=== PATIENT | male | born 1955 | race African-American/Black ===

== ENCOUNTER 2018-07-17 08:10 | Emergency (ER) | payer MEDICAID ==
[~2018-07-17] VITALS: Ht 177.8 cm; Wt 67.0 kg
[~2018-07-17 08:10] MED LIST: ALBU6.7H3 IH; CEPH-571 PO; IPRA12.94 IH
[2018-07-17 08:29] VITALS: BP 121/97
--- NOTE | 2018-07-17 09:00 | NUR ---
PATIENT WANTE TO LEAVE JEANE JEAN MADE AWARE.
[2018-07-17] MEDS ORDERED: amox tr/potassium clavulanate 875/125mg TAB PO ONE (09:10)
[2018-07-17] MEDS ORDERED: AMOX-422 PO (09:10)
== END 2018-07-17 09:24 | disposition left against medical advice (07) ==
LOC: ER 08:10
DX: S61.212A Laceration without foreign body of right middle finger without damage to nail, initial encounter (principal); S61.214A Laceration without foreign body of right ring finger without damage to nail, initial encounter; L08.9 Local infection of the skin and subcutaneous tissue, unspecified; M79.641 Pain in right hand; M19.90 Unspecified osteoarthritis, unspecified site; G89.29 Other chronic pain; F12.90 Cannabis use, unspecified, uncomplicated; F15.90 Other stimulant use, unspecified, uncomplicated; Z98.890 Other specified postprocedural states; Z60.2 Problems related to living alone; Z59.0 Homelessness; Z56.0 Unemployment, unspecified; Z79.2 Long term (current) use of antibiotics; W51.XXXA Accidental striking against or bumped into by another person, initial encounter; Y93.89 Activity, other specified; Y92.89 Other specified places as the place of occurrence of the external cause; Y99.8 Other external cause status
CPT/HCPCS: 73130; 99283

== ENCOUNTER 2018-07-23 16:46 | Emergency (ER) | payer MEDICAID ==
[~2018-07-23] VITALS: Ht 177.8 cm; Wt 69.7 kg
[~2018-07-23 16:46] MED LIST changes: +AMOX-422 PO
[2018-07-23 17:04] VITALS: BP 133/87
[2018-07-23] MEDS ORDERED: LIDOcaine 1.5% w/epinephrine 1:200,000 5ml ampul IJ ONE (19:05)
[2018-07-23] MEDS ORDERED: LIDOcaine 1% w/epiNEPHrine 1:200,000 30ml vial IJ ONE (19:10)
--- NOTE | 2018-07-23 19:30 | NUR ---
Rebecca SHERMAN AT BEDSIDE TO I&D ABSCESS TO RT HAND
[2018-07-23] MEDS ORDERED: DOXY100C2 PO (20:05)
[2018-07-23] MEDS ORDERED: ROBCFL PO (20:17)
== END 2018-07-23 20:19 | disposition home or self-care (01) ==
LOC: ER 16:46
DX: L02.511 Cutaneous abscess of right hand (principal); G89.29 Other chronic pain; M19.90 Unspecified osteoarthritis, unspecified site; F12.90 Cannabis use, unspecified, uncomplicated; F15.90 Other stimulant use, unspecified, uncomplicated; Z98.890 Other specified postprocedural states; Z79.899 Other long term (current) drug therapy; Z60.2 Problems related to living alone; Z59.0 Homelessness; Z56.0 Unemployment, unspecified
CPT/HCPCS: 10060; 99283; J3490

== ENCOUNTER 2019-03-21 09:23 | Emergency (ER) | payer OTHER, MEDICAID ==
[~2019-03-21] VITALS: Ht 177.8 cm; Wt 70.5 kg
[~2019-03-21 09:23] MED LIST changes: -AMOX-422 PO
[2019-03-21] MEDS ORDERED: LIDOcaine 4% LTA kit 4ml solution TP ONE (11:15)
[2019-03-21] MEDS ORDERED: iohexol 300mg/ml 100ml inj. ONE (11:21)
[2019-03-21 11:55] LABS: BASOPHILS % (AUTO) 0.5 % (0-1); EOSINOPHILS # (AUTO) 0.1 X10'3 (0-0.9); EOSINOPHILS % (AUTO) 2.7 % (0-6); HEMATOCRIT 42.4 % (42.0-52.0); LYMPHOCYTES # (AUTO) 1.5 X10'3 (1.1-4.8); LYMPHOCYTES % (AUTO) 29.4 % (21-51); MEAN CORPUSCULAR HEMOGLOBIN 30.4 PG (27.0-31.0); MEAN CORPUSCULAR VOLUME 92.3 FL (78-98); MEAN PLATELET VOLUME 7.8 FL (7.4-10.4); MONOCYTES # (AUTO) 0.7 X10'3 (0-0.9); MONOCYTES % (AUTO) 13.4 % (2-12); NEUTROPHILS # (AUTO) 2.8 X10'3 (1.8-7.7); PLATELET COUNT 216 X10'3 (140-440); RED CELL DISTRIBUTION WIDTH 14.4 % (11.5-14.5); WHITE BLOOD COUNT 5.2 X10'3 (4.5-11.0)
[2019-03-21 12:14] LABS: ALANINE AMINOTRANSFERASE 51 U/L (12-78); ALBUMIN/GLOBULIN RATIO 0.7 (1.1-1.5); ALKALINE PHOSPHATASE 73 IU/L (46-116); ANION GAP 4 (8-16); ASPARTATE AMINO TRANSFERASE 24 U/L (10-37); BILIRUBIN,TOTAL 0.4 MG/DL (0.1-1.0); BLOOD UREA NITROGEN 16 MG/DL (7-18); BUN/CREATININE RATIO 15.7 (5.4-32.0); CHLORIDE 104 MMOL/L (99-107); CREATININE 1.02 MG/DL (0.60-1.10); GLUCOSE 94 MG/DL (70-104); SODIUM 139 MMOL/L (135-145); TOTAL CARBON DIOXIDE 31.2 MMOL/L (24-32); TOTAL PROTEIN 7.5 G/DL (6.4-8.2); eGFR 90 ML/MIN
[2019-03-21] MEDS ORDERED: clindamycin 600mg/D5W 50ml 50 ML IV ONE (14:25)
[2019-03-21 18:07] VITALS: BP 118/57
== END 2019-03-21 18:10 | disposition short-term general hospital (02) ==
LOC: ER 09:23 → EEVIPCON 09:23 → ER 18:10
DX: J36 Peritonsillar abscess (principal); H61.23 Impacted cerumen, bilateral; J45.909 Unspecified asthma, uncomplicated; E11.9 Type 2 diabetes mellitus without complications; M19.90 Unspecified osteoarthritis, unspecified site; G89.29 Other chronic pain; F17.200 Nicotine dependence, unspecified, uncomplicated; F12.90 Cannabis use, unspecified, uncomplicated; F15.90 Other stimulant use, unspecified, uncomplicated; F10.10 Alcohol abuse, uncomplicated; Z60.2 Problems related to living alone; Z59.0 Homelessness; Z56.0 Unemployment, unspecified; Z98.890 Other specified postprocedural states; Z79.899 Other long term (current) drug therapy; Y90.9 Presence of alcohol in blood, level not specified
CPT/HCPCS: 36415; 70491; 80053; 85025; 96365; 99285; Q9967; J2001; J3490

== ENCOUNTER 2019-07-19 04:23 | Emergency (ER) | payer MEDICAID, OTHER ==
--- NOTE | 2019-07-19 04:32 | NUR ---
PT CALLED INTO TRIAGE, PT STATED HE NEEDED TO GO TO BATHROOM TO CLEAN UP HIS BOWEL MOVEMENT IN CLOTHES. PT APPEARED TO BE IN NO APPARENT DISTRESS. PT BELONGINGS ALL OVER LOBBY
--- NOTE | 2019-07-19 04:40 | NUR ---
SECURITY CALLED TO TANYA PT STILL IN BATHROOM
--- NOTE | 2019-07-19 04:58 | NUR ---
PT DEFIANT AND BELINGERANT AND THREATENING TOWARDS SECURITY. CLAIM BENEFIT SPECIALIST ALERTED. ESCORTED OUT OF ED LOBBY BY SECURITY.
== END 2019-07-19 04:59 | disposition left against medical advice (07) ==
LOC: ER 04:24
DX: J18.9 Pneumonia, unspecified organism (principal); Z53.21 Procedure and treatment not carried out due to patient leaving prior to being seen by health care provider

== ENCOUNTER 2024-06-17 22:35 | Emergency (ER) | payer MEDICARE, MEDICAID ==
[~2024-06-17] VITALS: Ht 175.3 cm; Wt 70.0 kg
[2024-06-17 22:40] VITALS: BP 166/89; PULSE 105; RESP 16; TEMP 98; O2SAT 95
== END 2024-06-18 03:11 | disposition home or self-care (01) ==
LOC: ER 22:36
DX: M17.11 Unilateral primary osteoarthritis, right knee (principal); J45.909 Unspecified asthma, uncomplicated; E11.9 Type 2 diabetes mellitus without complications; M19.90 Unspecified osteoarthritis, unspecified site; G89.29 Other chronic pain; M54.9 Dorsalgia, unspecified; F12.90 Cannabis use, unspecified, uncomplicated; F15.90 Other stimulant use, unspecified, uncomplicated; F10.10 Alcohol abuse, uncomplicated; Z59.00 Homelessness unspecified; Z56.0 Unemployment, unspecified; Z72.89 Other problems related to lifestyle
CPT/HCPCS: 73560; 99283

== ENCOUNTER 2024-12-06 19:23 | Emergency (ER) | payer MEDICARE, MEDICAID ==
[~2024-12-06] VITALS: Ht 177.8 cm; Wt 78.0 kg
--- NOTE | 2024-12-06 19:31 | Physician Documentation ---
History of Present Illness ~ Stated Complaint: SOB Time Seen by MD: 19:31 Primary Medical Doctor: Lauren Gomez 69-year-old male, history of COPD, who presents with shortness of breath Per EMS, the patient arrives with sudden onset of shortness of breath. On arrival he was very wheezy and had increased work of breathing. He was given a DuoNeb during transport with good improvement. He reportedly has been out of his inhaler The patient confirms this to me. He tells me he was feeling okay until this afternoon, when he suddenly started to feel short of breath. He reports feeling very wheezy. He does not have an inhaler, has been out for at least 4 days. Denies any fevers or other infectious symptoms, no congestion, cough, vomiting. No chest pain. No leg swelling. He denies any smoking or inhalation of substances today. He did have a recent pneumonia and was on antibiotics and steroids. Medication Reconciliation Allergies: Coded Allergies: No Known Allergies (Unverified , 11/14/16) Scheduled Cephalexin (Keflex), 1 CAP PO Q6H Prednisone* (Prednisone*), 2 TAB PO DAILY Scheduled PRN albuterol inhaler (Pro-Air Inhaler), 2 PUFFS INH Q4HPRN PRN for wheezing Miscellaneous Medications Albuterol Sulfate (Proventil Hfa), 6.7 GM IH, (Reported) Ipratropium [place] (Atrovent Hfa), 12.9 GM IH, (Reported) Past Medical History Past Medical History: Asthma, Diabetes, Arthritis, Chronic Back Pain Past Surgical History: orthopedic surgeries Alcohol Use: Abuse Drug Use: marijuana, methamphetamine Lives with: Alone Lives In: Homeless Occupation: unemployed Review of Systems Constitutional: Denies: fever Respiratory: Reports: shortness of breath Cardiovascular: Denies: chest pain Physical Exam Physical Exam General: This is a thin middle-aged man, with slightly increased work of breathing, currently doing a breathing treatment Heart: Mild tachycardic, appears regular Lungs: Diminished air movement bilateral with expiratory wheezes, no crackles Abdomen: Soft, nondistended Extremities: Warm and well-perfused, no significant edema Neuro: Alert and oriented Psychiatric: Calm and cooperative with exam Progress Results/Orders Results/Orders Orders - BELINDA PRATT MD Chest,Single View (12/06/24 19:26) Monitor (12/06/24 19:26) Saline Lock (12/06/24 19:26) Oxygen (12/06/24 19:26) Electrocardiogram (12/06/24 19:26) Completed Orders - BELINDA PRATT MD Chest,Single View (12/06/24 19:26) Prednisone Tablet (Prednisone Tablet) (12/06/24 19:50) Ipratropium/Albuterol Nebule (Ipratrop/A (12/06/24 21:35) Medications Received in ER Medications (Trade) Dose Ordered Sig/Markie Route PRN Reason Start Time Stop Time Status Last Admin Dose Admin (predniSONE tablet) 40 mg ONCE ONCE PO 12/06/24 19:50 12/06/24 19:51 DC 12/06/24 20:01 40 MG (ipratrop/ albuterol 0.5-3(2.5) MG/3ml nebule) 3 ml ONCE ONCE NEB 12/06/24 21:35 12/06/24 21:36 DC 12/06/24 21:43 3 ML Vital Signs 12/06/24 12/06/24 12/06/24 12/06/24 19:25 20:56 20:57 21:43 Temp 97.6 Pulse 93 93 100 Resp 16 14 22 16 B/P (MAP) 139/90 121/91 (101) Pulse Ox 100 98 95 O2 Delivery Room Air* O2 Flow Rate 2.0 0 0 FiO2 21 12/06/24 21:47 Pulse 101 Resp 16 O2 Delivery Room Air* O2 Flow Rate 0 FiO2 21 Re-Evaluation Re-evaluation : Re-Evaluation Time: 21:52 Re-Evaluation: Improved Progress The patient is feeling much better and breathing easily after treatments. Ready for discharge home. EKG/XRAY/CT/US/VASC/MRI EKG : Additional Comment I personally interpreted the EKG and this shows: No acute ischemic changes, no STEMI, sinus rhythm Chest X-Ray : Additional Comments I personally reviewed the x-ray, and it shows: No focal consolidation, pulmona ry edema, or pneumothorax Medical Decision Making Differential Dx:Considerations: Include: anxiety, bronchitis, COPD, dysrhythmia, myocardial infarction Additional Infomation The patient presents with shortness of breath and wheezing. Per his history and exam this all appears consistent with a COPD flare. He has no fevers or other infectious symptoms. Chest x-ray without pneumonia. He was given a DuoNeb and prednisone. Following treatments, he significantly improved. At this time he is not appear to require admission for further treatment. Unfortunately we do not have an inhaler to send him home with. He will be discharged with a prescription for albuterol and prednisone. Return precautions given. Departure Time of Disposition: 21:53 Disposition: 01 HOME / SELF CARE / HOMELESS Impression: Primary Impression: COPD exacerbation Condition: Improved Discharge Instructions: Chronic Obstructive Pulmonary Disease Exacerbation Referrals: NO PRIMARY CARE PROVIDER (PCP) Prescriptions Prednisone* (Prednisone*) 20 Mg Tablet 2 TAB PO DAILY for 4 Days, #8 TAB Prov: BELINDA PRATT MD 12/06/24 albuterol inhaler (Pro-Air Inhaler) 8.5 Gm Inhaler 2 PUFFS INH Q4HPRN PRN for wheezing for 30 Days, #18 GM 2 Refills Prov: BELINDA PRATT MD 12/06/24 Education Educated: Patient Educated regarding: diagnosis, treatment Signature Scribe Signature: [email or web address] Attestation: BELINDA White MD December 06, 2024 19:31
--- NOTE | 2024-12-06 19:57 | RADIOLOGY REPORT ---
EXAM: XR Chest, 1 View CLINICAL INDICATION: CP TECHNIQUE: Frontal view of the chest. COMPARISON: None FINDINGS: LUNGS AND PLEURAL SPACES: Unremarkable. No consolidation. No pneumothorax. HEART: Unremarkable. No cardiomegaly. MEDIASTINUM: Unremarkable. Normal mediastinal contour. BONES/JOINTS: Unremarkable. No acute fracture. OTHER FINDINGS: . IMPRESSION: No acute cardiopulmonary process.
[2024-12-06] MEDS: predniSONE 20 mg tablet PO ONE (20:01)
[2024-12-06 21:43] VITALS: PULSE 100; RESP 16; O2SAT 95
[2024-12-06] MEDS: ipratropium/albuterol 3ml nebule NEB ONE (21:43)
[2024-12-06 21:47] VITALS: PULSE 101; RESP 16
[2024-12-06] MEDS ORDERED: ALBU8HFA INH (21:54)
[2024-12-06] MEDS ORDERED: PRED20TA PO (21:55)
[2024-12-06 23:24] VITALS: BP 130/86; PULSE 93; RESP 16; TEMP 97.6; O2SAT 97
--- NOTE | 2024-12-07 07:50 | ELECTROCARDIOGRAPH REPORT ---
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
== END 2024-12-06 23:40 | disposition home or self-care (01) ==
LOC: ER 19:23
DX: J44.1 Chronic obstructive pulmonary disease with (acute) exacerbation (principal); E11.9 Type 2 diabetes mellitus without complications; M19.90 Unspecified osteoarthritis, unspecified site
CPT/HCPCS: 71045; 93005; 94640; 99283; J7512; 94760

== ENCOUNTER 2024-12-09 00:33 | Emergency (ER) | payer MEDICARE, MEDICAID ==
[~2024-12-09] VITALS: Ht 177.8 cm; Wt 78.0 kg
[~2024-12-09 00:33] MED LIST changes: +ALBU8HFA INH; +PRED20TA PO
--- NOTE | 2024-12-09 01:28 | Physician Documentation ---
History of Present Illness ~ Chief Complaint: Abdominal Pain Stated Complaint: HERNIA PAIN Time Seen by MD: :25 Primary Medical Doctor: Lauren Gomez Patient presented to the emergency room with chief complaint of right hernia pain. He has been seen here previously a proximally 1.5 years ago with similar complaints with negative workup at that time. He states it has been hurting more over the past month this and his reported sciatic pain. He was taken some ibuprofen for his pain. Patient noted to be in lobby comfortably laughing however upon being put in his room writhing in agony. Upon my evaluation he was sleeping heavily in the room and easily arousable. Patient continues to pass gas Medication Reconciliation Allergies: Coded Allergies: No Known Allergies (Unverified , 12/09/24) Scheduled Cephalexin (Keflex), 1 CAP PO Q6H Prednisone* (Prednisone*), 2 TAB PO DAILY Scheduled PRN albuterol inhaler (Pro-Air Inhaler), 2 PUFFS INH Q4HPRN PRN for wheezing Miscellaneous Medications Albuterol Sulfate (Proventil Hfa), 6.7 GM IH, (Reported) Ipratropium [place] (Atrovent Hfa), 12.9 GM IH, (Reported) Past Medical History Past Medical History: Asthma, Diabetes, Arthritis, Chronic Back Pain Past Surgical History: orthopedic surgeries Alcohol Use: Abuse Drug Use: marijuana, methamphetamine Lives with: Alone Lives In: Homeless Occupation: unemployed Review of Systems ROS All review of systems negative except as per HPI Physical Exam Vital Signs: Temperature: 96.6, Source: Temporal, Heart Rate: 103, Respiratory Rate: 18, Pulse Oximetry: 96, Weight: 78.000 Physical Exam General: Patient is sleeping comfortably and easily arousable. Problems even turning over once awakened secondary to reported pain of his scrotum and sciatica Head: Normocephalic and atraumatic. Eyes: Conjunctival normal. EOMI. PERRL. ENT: Mucous membranes moist. Neck: Supple, trachea is midline. Chest: Clear to auscultation bilaterally without rales, rhonchi, or wheezes. There is no accessory muscle use or retractions. Cardiac: RRR without murmurs, gallops, or rubs. Abd: Soft, nondistended, nontender, with normoactive bowel sounds. No guarding, rebound, or rigidity. : Normal male external genitalia, uncircumcised. Tenderness to scrotum. No appreciable hernia. Cremasteric reflex intact bilaterally Progress Results/Orders Results/Orders Orders - TONYA MCKEON MD Ct Abdomen Pelvis (12/09/24 04:00) LA (12/09/24 04:25) Completed Orders - TONYA MCKEON MD Cbc/Diff (12/09/24 01:53) Urinalysis, Cult If Indicated (12/09/24 01:53) BMP (12/09/24 01:53) Drug Screen, Urine (12/09/24 01:53) Hydrocodone/Apap 5/325mg Tab ([place] 5/32 (12/09/24 01:55) Ct Abdomen Pelvis (12/09/24 04:00) Iohexol 300mg/Ml 100ml Inj. (Omnipaque-3 (12/09/24 03:27) Medications Received in ER Medications (Trade) Dose Ordered Sig/Markie Route PRN Reason Start Time Stop Time Status Last Admin Dose Admin ([place] 5/325mg tablet) 1 tab ONCE ONCE PO 12/09/24 01:55 12/09/24 01:56 DC 12/09/24 02:21 1 TAB Vital Signs 12/09/24 12/09/24 00:37 02:21 Temp 96.6 Pulse 103 Resp 18 12 Pulse Ox 96 Laboratory Tests Test 12/09/24 03:00 12/09/24 03:05 Urine Specimen Description Cln catch midstream Urine Color Yellow Urine Clarity Clear Urine pH 6.0 Urine Specific [place] 1.020 Urine Protein Negative Urine Glucose (UA) Negative Urine Ketones Negative Urine Occult Blood Negative Urine Nitrite Negative Urine Bilirubin Negative Urine Urobilinogen 0.2 Urine Leukocyte Esterase Negative Urine Culture Indicated Not ind Volume Urine Centrifuged 10 ml Urine Comment Urine Opiates Screen Negative Urine Methadone Screen Negative Urine Fentanyl Screen Negative Urine Barbiturates Screen Negative Urine Phencyclidine Screen Negative Urine Amphetamines Screen Negative Urine Benzodiazepines Screen Negative Urine Cocaine Screen Negative Urine Cannabinoids Screen Negative Drug Screen Comment White Blood Count 5.1 Red Blood Count 4.70 Hemoglobin 13.6 L Hematocrit 41.4 L Mean Corpuscular Volume 88.1 Mean Corpuscular Hemoglobin 29.0 Mean Corpuscular Hemoglobin Concent 33.0 Red Cell Distribution Width 15.2 H Platelet Count 226 Mean Platelet Volume 8.6 Neutrophils (%) (Auto) 43.8 Lymphocytes (%) (Auto) 40.4 Monocytes (%) (Auto) 11.6 Eosinophils (%) (Auto) 3.3 Basophils (%) (Auto) 0.9 Neutrophils # (Auto) 2.2 Lymphocytes # (Auto) 2.1 Monocytes # (Auto) 0.6 Eosinophils # (Auto) 0.2 Basophils # (Auto) 0.0 CBC Comment Sodium Level 138 Potassium Level 4.1 Chloride Level 105 Carbon Dioxide Level 27.2 Anion Gap 6 L Blood Urea Nitrogen 30 H Creatinine 0.97 Estimated GFR/1.73 m2 > 90 BUN/Creatinine Ratio 30.9 H Glucose Level 96 Calcium Level 8.7 Albumin 2.9 L Chemistry Comments Re-Evaluation Re-Evaluation : Progress Patient is sleeping in room comfortably, time 2:21 a.m. Time 4:34 a.m.: Patient continues to sleep comfortably. Medical Decision Making Findings Patient presented to the emergency room with scrotal pain from reported hernia as well as reported sciatica. At times patient appears in distress while I am in the room at other times he is laughing in the waiting room as well as sleeping comfortably in his room. I do not deny patient has some degree of discomfort however his physical exam is inconsistent during his course in the emergency room. No palpable but hernia on physical exam and testicular exam is reassuring. CT scan performed as there is concern for possible cryptic hernia or possibly other infectious process like perirectal abscess however CT scan was reassuring. He had not feel patient is suffering from testicular torsion and he had not feel he requires an ultrasound. Departure Disposition: 01 HOME / SELF CARE / HOMELESS Impression: Primary Impression: Scrotal pain Condition: Stable Discharge Instructions: Hernia, Adult, [id number] Additional Instructions: Follow up with your doctor. Return for worsening of symptoms or fevers. Add Tylenol to your pain regimen. Referrals: NO PRIMARY CARE PROVIDER (PCP) Education Educated: Patient Educated regarding: diagnosis, need for follow up Signature Scribe Signature: No scribe Attestation: The note accurately reflects work and decisions made by me.Tonya Mckeon MD 12/09/24 05:22 TONYA MCKEON MD December 09, 2024 01:28
[2024-12-09] MEDS: HYDROcodone/acetaminophen 5mg/325mg tablet PO ONE (02:21)
[2024-12-09] MEDS ORDERED: iohexol 300mg/ml 100ml inj. ONE (03:27)
[2024-12-09 03:38] LABS: BASOPHILS % (AUTO) 0.9 % (0-1); EOSINOPHILS # (AUTO) 0.2 X10'3 (0-0.9); EOSINOPHILS % (AUTO) 3.3 % (0-6); HEMATOCRIT 41.4 % (42.0-52.0); HEMOGLOBIN 13.6 g/dl (14.0-17.9); LYMPHOCYTES # (AUTO) 2.1 X10'3 (1.1-4.8); LYMPHOCYTES % (AUTO) 40.4 % (21-51); MEAN CORPUSCULAR VOLUME 88.1 FL (78-98); MEAN PLATELET VOLUME 8.6 FL (7.4-10.4); MONOCYTES # (AUTO) 0.6 X10'3 (0-0.9); MONOCYTES % (AUTO) 11.6 % (2-12); NEUTROPHILS # (AUTO) 2.2 X10'3 (1.8-7.7); NEUTROPHILS % (AUTO) 43.8 % (42-75); PLATELET COUNT 226 X10'3 (140-440); RED CELL DISTRIBUTION WIDTH 15.2 % (11.5-14.5); WHITE BLOOD COUNT 5.1 X10'3 (4.5-11.0)
[2024-12-09 03:40] LABS: BILIRUBIN,URINE NEGATIVE (Neg); CLARITY,URINE CLEAR (Clear); COLOR,URINE YELLOW (Yellow); GLUCOSE, URINE NEGATIVE (Neg); KETONES,URINE NEGATIVE (Neg); LEUKOCYTE ESTERASE ,URINE NEGATIVE (Neg); NITRITES, URINE NEGATIVE (Neg); OCCULT BLOOD,URINE NEGATIVE (Neg); PROTEIN,URINE NEGATIVE (Neg); UROBILINOGEN,URINE 0.2 E.U/dL (0.2-1.0)
[2024-12-09 03:41] LABS: UA COLLECTION TYPE CLN CATCH MIDSTREAM
[2024-12-09 03:45] LABS: ALBUMIN 2.9 G/DL (3.4-5.0); ANION GAP 6 (8-16); BLOOD UREA NITROGEN 30 MG/DL (7-18); BUN/CREATININE RATIO 30.9 (10.0-20.0); CALCIUM 8.7 MG/DL (8.5-10.1); CHLORIDE 105 MMOL/L (99-107); CREATININE 0.97 MG/DL (0.60-1.10); GLUCOSE 96 MG/DL (70-104); POTASSIUM 4.1 MMOL/L (3.5-5.1); SODIUM 138 MMOL/L (135-145); TOTAL CARBON DIOXIDE 27.2 MMOL/L (24-32); eCRCL 76 ML/MIN; eGFR > 90 ML/MIN
[2024-12-09 03:53] LABS: URINE AMPHETAMINE SCREEN NEGATIVE (Neg); URINE BARBITUATE SCREEN NEGATIVE (Neg); URINE BENZODIAZEPINES SCREEN NEGATIVE (Neg); URINE CANNABINOID SCREEN NEGATIVE (Neg); URINE COCAINE SCREEN NEGATIVE (Neg); URINE METHADONE SCREEN NEGATIVE (Neg); URINE OPIATE SCREEN NEGATIVE (Neg); URINE PHENCYCLIDINE SCREEN NEGATIVE (Neg)
--- NOTE | 2024-12-09 04:47 | RADIOLOGY REPORT ---
Exam: CT CT ABDOMEN PELVIS W/ IV CONTRAST History: hernia pain COMPARISON: None Technique: Multidetector spiral CT of the abdomen and pelvis was performed from lung bases to pubic s ymphysis. Intravenous contrast was administered during this examination. Portal venous imaging was o btained. Axial, coronal and sagittal multiplanar reformats were performed by the technologist on a [employer] workstation. Radiation Dose : 1. Abdomen/Pelvis: CTDIvol 12.9 mGy, DLP 633 mGy*cm. Findings: Lung Bases: No acute or significant lung base finding. Normal heart size. No pleural or pericardial effusion. Liver: The liver is normal in size. No focal lesions. Normal hepatic vascular enhancement. Gallbladder and Biliary Tree: Unremarkable Spleen: Unremarkable Pancreas: The pancreas is normal in appearance without focal lesions or abnormal enhancement. Adrenal Glands: Unremarkable Kidneys: No hydronephrosis. Bladder: Unremarkable Bowel: The stomach is grossly normal in appearance. Moderate colonic stool. The appendix is not visua lized; however, no secondary findings of acute appendicitis identified. Ascites: Absent Lymphadenopathy: No mesenteric, retroperitoneal or periportal lymphadenopathy. Abdominal Wall and Mesentery: Unremarkable. Vasculature: The visualized abdominal aorta is normal in size and caliber. Abdominal and pelvic vess els demonstrate normal enhancement. Pelvic Organs: Unremarkable Musculoskeletal: No aggressive focal bony lesions, acute fractures or dislocation. Degenerative flores es of the spine. IMPRESSION: Moderate volume colonic stool.
[2024-12-09 05:24] VITALS: BP 138/78; PULSE 88; RESP 18; TEMP 96.6; O2SAT 99
== END 2024-12-09 05:51 | disposition home or self-care (01) ==
LOC: ER 00:34
DX: N50.82 Scrotal pain (principal); E11.9 Type 2 diabetes mellitus without complications; J45.909 Unspecified asthma, uncomplicated; M19.90 Unspecified osteoarthritis, unspecified site
CPT/HCPCS: 36415; 74177; 80048; 80305; 81003; 85025; 99285; Q9967

== ENCOUNTER 2025-04-25 07:35 | Emergency (ER) | payer MEDICARE, MEDICAID ==
[~2025-04-25] VITALS: Ht 175.3 cm; Wt 75.0 kg
[~2025-04-25 07:35] MED LIST changes: -PRED20TA PO
[2025-04-25 07:37] VITALS: TEMP 97.6
--- NOTE | 2025-04-25 08:22 | Physician Documentation ---
History of Present Illness ~ Chief Complaint: Hip pain Stated Complaint: HIP PAIN Time Seen by MD: 07:40 Primary Medical Doctor: Lauren Valdez Source: patient, EMS, EMS notes reviewed Mode of Arrival: EMS Exam Limitations: no limitations HPI Chief Complaint: Right hip pain Caveat: None Independent Historians: Paramedics History of Present Illness: Patient is a 69-year-old man brought in by paramedics from the street. Patient is homeless. Patient is wheelchair bound. Patient states that he lean forward yesterday got lightheaded and fell out of his wheelchair at approximately 11 a.m. to 12:00 p.m. patient is wheelchair- bound because of severe osteoarthritis in his knees. Patient fell out of his wheelchair onto his right side. Patient complains of 8/10 right hip pain and pain in the groin. Pain is worse with movement. Patient has not taken anything for the pain. Patient denies hitting his head and denies any other injuries. Review of systems: All systems were reviewed and are negative except for what is indicated in the history of present illness. Past Medical History: Severe osteoarthritis in the knees, HTN, peripheral neuropathy, borderline diabetes Past Surgical History: Noncontributory Social History: Tobacco use, alcohol use, occasional marijuana use, occasional methamphetamine use Medications: Reviewed as documented Nursing Notes Allergies: Reviewed as documented in Nursing Notes Tetanus within 5 Years?: Yes Medication Reconciliation Allergies: Coded Allergies: No Known Allergies (Unverified , 04/25/25) Scheduled Cephalexin (Keflex), 1 CAP PO Q6H Scheduled PRN albuterol inhaler (Pro-Air Inhaler), 2 PUFFS INH Q4HPRN PRN for wheezing Miscellaneous Medications Albuterol Sulfate (Proventil Hfa), 6.7 GM IH, (Reported) Ipratropium [place] (Atrovent Hfa), 12.9 GM IH, (Reported) Past Medical History Past Medical History: Asthma, Diabetes, Arthritis, Chronic Back Pain Past Surgical History: orthopedic surgeries Alcohol Use: Abuse Drug Use: marijuana, methamphetamine Lives with: Alone Lives In: Homeless Occupation: unemployed Review of Systems All Other Systems at this time: Reviewed and Negative ROS Patient denies any other acute symptoms other than above. All other systems are negative Physical Exam Vital Signs: RN Vital Signs have been reviewed: Yes, Temperature: 97.6, Heart Rate: 78, Respiratory Rate: 16, BP: 163/116, Pulse Oximetry: 97, Weight: 75.000 Oxygen Flow Rate: 0 Pulse Oximetry Reflects: adequate oxygenation Physical Exam General Appearance: Chronically ill-appearing, mild distress HEENT: Normal OP, moist oral mucosa, PERRL, EOMI, head and face atraumatic Neck: supple, normal ROM, trachea midline Pulmonary: No respiratory distress, CTA, BS equal Cardiac: RRR, no murmur, rub or gallop, GI: nondistended, soft, nontender, normal bowel sounds, no guarding, no rebound Extremities: Decreased range of motion in both lower extremities. Patient has significant chronic swelling of both knees right greater than left. Patient has both lower extremities mildly flexed at the hip Skin: intact, dry, warm, no rashes Neuro: AAOx3, speech is clear, no focal motor weakness Psych: normal affect, good eye contact, no apparent hallucination, normal speech Progress Results/Orders Results/Orders Orders - CHRISTIAN FRIAS MD Urinalysis, Cult If Indicated (04/25/25 07:56) Chest,Single View (04/25/25 07:56) Pelvis,Limited 1-2 Views (04/25/25 07:56) Saline Lock (04/25/25 07:56) Monitor (04/25/25 07:56) Nothing By Mouth (04/25/25 Lunch) Ed Iv Antiemetic (04/25/25 07:56) Ed Iv Pain Medications (04/25/25 07:56) Morphine 4mg/Ml Inj. (Morphine Inj.) (04/25/25 08:00) Drug Screen, Urine (04/25/25 08:02) Ct Lower Extremity (04/25/25 10:40) Completed Orders - CHRISTIAN FRIAS MD Cbc/Diff (04/25/25 07:56) Electrocardiogram (04/25/25 07:56) Chest,Single View (04/25/25 07:56) Pelvis,Limited 1-2 Views (04/25/25 07:56) Ondansetron Inj. (Zofran 4mg/2ml Vial) (04/25/25 08:00) CMP (04/25/25 08:00) Ethanol (04/25/25 08:02) Ct Lower Extremity (04/25/25 10:40) Medications Received in ER Medications (Trade) Dose Ordered Sig/Markie Route PRN Reason Start Time Stop Time Status Last Admin Dose Admin (Zofran 4mg/2ml vial) 4 mg ONCE ONCE IV 04/25/25 08:00 04/25/25 08:01 DC 04/25/25 08:40 4 MG (morphine inj.) 4 mg Q10M PRN IV moderate or severe pain 4-10 04/25/25 08:00 04/25/25 08:41 4 MG Vital Signs 04/25/25 04/25/25 04/25/25 04/25/25 07:37 07:56 08:41 08:43 Temp 97.6 Pulse 78 96 Resp 16 16 16 16 B/P (MAP) 163/116 150/107 (121) Pulse Ox 97 97 O2 Flow Rate 0 0 04/25/25 04/25/25 09:27 10:16 Pulse 99 Resp 16 14 B/P (MAP) 145/104 (118) Pulse Ox 95 O2 Flow Rate 0 Laboratory Tests Test 04/25/25 08:11 White Blood Count 5.1 Red Blood Count 4.73 Hemoglobin 13.9 L Hematocrit 41.8 L Mean Corpuscular Volume 88.5 Mean Corpuscular Hemoglobin 29.5 Mean Corpuscular Hemoglobin Concent 33.3 Red Cell Distribution Width 15.3 H Platelet Count 257 Mean Platelet Volume 7.5 Neutrophils (%) (Auto) 63.9 Lymphocytes (%) (Auto) 23.1 Monocytes (%) (Auto) 9.7 Eosinophils (%) (Auto) 2.4 Basophils (%) (Auto) 0.9 Neutrophils # (Auto) 3.2 Lymphocytes # (Auto) 1.2 Monocytes # (Auto) 0.5 Eosinophils # (Auto) 0.1 Basophils # (Auto) 0.0 CBC Comment Sodium Level 138 Potassium Level 4.1 Chloride Level 102 Carbon Dioxide Level 31.3 Anion Gap 5 L Blood Urea Nitrogen 15 Creatinine 0.83 Estimated GFR/1.73 m2 > 90 BUN/Creatinine Ratio 18.1 Glucose Level 100 Calcium Level 8.9 Total Bilirubin 0.5 Aspartate Amino Transf (AST/SGOT) 36 Alanine Aminotransferase (ALT/SGPT) 43 Alkaline Phosphatase 90 Total Protein 8.1 Albumin 2.9 L Globulin 5.2 H Albumin/Globulin Ratio 0.6 L Chemistry Comments Ethyl Alcohol Level < 10 Medical Decision Making Additional info obtained from: old records Findings Differential diagnosis includes but is not limited to: Hip fracture, pelvis fracture, contusion, osteoarthritis EKG independent interpretation: Performed at 8:35 a.m.. Normal sinus rhythm, heart rate 75, normal axis, normal ST segments, Q-wave in V1 and V2 Chest x-ray, single view, indication: Fall Independent interpretation: Lungs are clear, normal mediastinum, normal cardiac silhouette. No acute cardiopulmonary process Pelvis x-ray, two views, indication: Fall and right hip pain Impression: Severe arthritic changes to the right hip, nonspecific bowel gas pattern, no fractures identified CT right hip without IV contrast, indication: Pain Impression: 1. No acute fracture or dislocation. 2. Severe right hip osteoarthritis. 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 3. Colonic diverticulosis without acute diverticulitis. Laboratory data independent interpretation: CBC: Unremarkable CMP: Unremarkable Emergency department course/medical decision-making: Patient presents with right hip pain after falling out of the wheelchair. However this pain is also chronic and he has chronic knee pain secondary to severe osteoarthritis. Patient appears chronically ill. Patient was given morphine 4 mg IV for pain and 4 mg of Zofran for potential nausea. No evidence of fractures pelvic or hip. No admission criteria identified. No medical or surgical emergency identified. Patient is stable for discharge. Departure Time of Disposition: 12:45 Disposition: 01 HOME / SELF CARE / HOMELESS Impression: Primary Impression: Osteoarthritis of right hip Qualified Codes: M16.11 - Unilateral primary osteoarthritis, right hip Additional Impression: Avascular necrosis of bone of right hip Condition: Stable Discharge Instructions: Osteoarthritis Additional Instructions: FOLLOW UP WITH YOUR PRIMARY CARE DOCTOR. RECOMMEND YOU FOLLOW UP WITH YOUR PRIMARY CARE DOCTOR FOR BETTER PAIN MANAGEMENT. TAKE TYLENOL AND MOTRIN FOR PAIN. Education Educated: Patient Educated regarding: diagnosis, treatment, need for follow up Signature Scribe Signature: No scribe Attestation: No scribe CHRISTIAN FRIAS MD Apr 25, 2025 08:22
[2025-04-25 08:23] LABS: MEAN PLATELET VOLUME 7.5 FL (7.4-10.4); RED CELL DISTRIBUTION WIDTH 15.3 % (11.5-14.5)
--- NOTE | 2025-04-25 08:38 | ELECTROCARDIOGRAPH REPORT ---
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
[2025-04-25 08:39] LABS: CREATININE 0.83 MG/DL (0.60-1.10); TOTAL CARBON DIOXIDE 31.3 MMOL/L (24-32); eCRCL 86 ML/MIN; eGFR > 90 ML/MIN
[2025-04-25] MEDS: ondansetron/PF 4mg/2ml inj IV ONE (08:40)
[2025-04-25] MEDS: morphine 4 MG/ML inj SYRINge IV PRN (08:41)
--- NOTE | 2025-04-25 08:55 | RADIOLOGY REPORT ---
EXAM: DI CHEST,SINGLE VIEW Indication: FALL / TRAUMA Technique: Single frontal view of the chest was obtained Comparison: DI CHEST,SINGLE VIEW on DOS: 12/06/24 FINDINGS: Lines and Tubes: None Lungs: No focal consolidation. Pleura: No effusion. No pneumothorax. Cardiomediastinal contours: Unremarkable Bones: No acute osseous abnormality. IMPRESSION: No acute cardiopulmonary disease.
--- NOTE | 2025-04-25 08:55 | RADIOLOGY REPORT ---
CLINICAL INDICATION: FALL / TRAUMA TECHNIQUE: 2 radiographic views of the pelvis were obtained. Comparison: None FINDINGS/IMPRESSION: There is no evidence of acute fracture or dislocation. Severe osteoarthrosis of the right femoroacetabular joint with subchondral cystic change.
[2025-04-25 08:56] LABS: ETHANOL < 10 MG/DL (<10)
--- NOTE | 2025-04-25 11:35 | RADIOLOGY REPORT ---
CLINICAL INDICATION: Right hip pain. TECHNIQUE: Noncontrast CT of the right lower extremity was performed. Sagittal and coronal reformatted images are provided. COMPARISON: None. CT Dose: CTDI volume is 13.7 mGy. Dose-length product is 430.1 mGy*cm FINDINGS: There is severe right hip osteoarthritis characterized by joint space narrowing, subchondral cysts and osteophytes. There is a curvilinear low signal intensity focus in the femoral head consistent with superimposed avascular necrosis of the femoral head. There is no articular collapse. No acute fracture. Right hip joint effusion is noted. Colonic diverticulosis without inflammatory changes noted. Multilevel lumbar spondylosis. IMPRESSION: 1. No acute fracture or dislocation. 2. Severe right hip osteoarthritis. 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 3. Colonic diverticulosis without acute diverticulitis. All CT scans at this medical facility are performed using dose modulation techniques as appropriate to a performed exam including the following: Automated exposure control was utilized; adjustment of the MA and/or KV according to patient size; and use of iterative reconstruction technique.
[2025-04-25 12:45] VITALS: BP 145/92; PULSE 95; RESP 12; O2SAT 95
== END 2025-04-25 22:07 | disposition home or self-care (01) ==
LOC: ER 07:36
DX: M16.11 Unilateral primary osteoarthritis, right hip (principal); M87.88 Other osteonecrosis, other site; J45.909 Unspecified asthma, uncomplicated; I10 Essential (primary) hypertension; F15.90 Other stimulant use, unspecified, uncomplicated; F12.90 Cannabis use, unspecified, uncomplicated; M19.90 Unspecified osteoarthritis, unspecified site; G89.29 Other chronic pain; E11.42 Type 2 diabetes mellitus with diabetic polyneuropathy; Z59.00 Homelessness unspecified; Z56.0 Unemployment, unspecified; Z98.890 Other specified postprocedural states
CPT/HCPCS: 36415; 71045; 72170; 73700; 80053; 85025; 93005; 96374; 96375; 99285; G0480; J2270; J2405; 80320

== ENCOUNTER 2025-06-07 00:43 | Emergency (ER) | payer MEDICARE, MEDICAID ==
[~2025-06-07] VITALS: Ht 177.8 cm; Wt 47.6 kg
[~2025-06-07 00:43] MED LIST changes: +GABA-530 PO
[2025-06-07 00:48] VITALS: TEMP 98
--- NOTE | 2025-06-07 01:14 | Physician Documentation ---
History of Present Illness ~ Chief Complaint: Leg Pain Stated Complaint: NERVE PAIN Time Seen by MD: 00:47 Primary Medical Doctor: Lauren Valdez Mode of Arrival: EMS HPI Patient presents to the emergency room for evaluation of leg pain. He is sent from rehab facility. We are able to contact facility and they state that he is writhing in pain yelling keeping every one up therefore with they sent him to our emergency room. Upon my arrival at bedside patient was sleeping comfortably. Tetanus witin 5 years: Yes Medication Reconciliation Allergies: Coded Allergies: No Known Allergies (Unverified , 04/25/25) Scheduled Cephalexin (Keflex), 1 CAP PO Q6H Scheduled PRN Gabapentin (Gabapentin), 300 MG PO Q8H PRN for pain albuterol inhaler (Pro-Air Inhaler), 2 PUFFS INH Q4HPRN PRN for wheezing Miscellaneous Medications Albuterol Sulfate (Proventil Hfa), 6.7 GM IH, (Reported) Ipratropium [place] (Atrovent Hfa), 12.9 GM IH, (Reported) Past Medical History Past Medical History: Asthma, Diabetes, Arthritis, Chronic Back Pain Past Surgical History: orthopedic surgeries Patient History: FH: diabetes mellitus MOTHER, Onset:Unknown brother SISTER Alcohol Use: Abuse Drug Use: marijuana, methamphetamine Lives with: Alone Lives In: Homeless Occupation: unemployed Review of Systems ROS All review of systems negative except as per HPI Physical Exam Vital Signs: Temperature: 98.0, Source: Oral, Heart Rate: 85, Respiratory Rate: 16, BP: 103/85, Pulse Oximetry: 96, Weight: 47.600 Oxygen Flow Rate: 0 Physical Exam General: Patient is sleeping comfortably in no acute distress Head: Normocephalic and atraumatic. Eyes: Conjunctival normal. EOMI. PERRL. ENT: Mucous membranes moist. Neck: Supple, trachea is midline. Chest: Clear to auscultation bilaterally without rales, rhonchi, or wheezes. There is no accessory muscle use or retractions. Cardiac: RRR without murmurs, gallops, or rubs. Extremities: Patient moving legs without limitation. Noted wounds on bilateral leg with no sign of infection Progress Results/Orders Results/Orders Vital Signs 06/07/25 00:48 Temp 98.0 Pulse 85 Resp 16 B/P (MAP) 103/85 Pulse Ox 96 O2 Flow Rate 0 Medical Decision Making Additional information obtaine: old records Findings Patient presents to the emergency room with a apparent uncontrolled leg pain. He appears comfortable. I do not believe his pain is uncontrolled. Upon review of that has med rec looks like he received gabapentin. That has no documentation of opioids being prescribed. I will give him a dose of gabapentin. Sanches signs stable General Diff Dx:Considerations: Include: Abrasion, Contusion, Fracture, Hematoma, Laceration, Malunion, Neurovascular injury, Open fracture, Sprain, Ul cer, Other Knee Diff Dx:Considerations: Include: Abrasion, Arthritis, Contusion, DJD, Fracture-femur, Fracture-fibula, Fracture-patella, Fracture-tibia, Gout, Hematoma, Laceration, Meniscus injury, Neurovascular injury, Open fracture, Rheumatoid arthritis, Septic, Sprain, Sprain-MCL, Sprain-LCL, Sprain-ACL, Sprain-PCL, Other Ankle Diff Dx:Considerations: Include: Abrasion, Arthritis, Contusion, DJD, Fracture-metatarsal, Fracture-fibula, Fracture-tarsal, Fracture-tibia, Gout, Hematoma, Laceration, Malunion, Neurovascular injury, Nonunion, Open fracture, Osteomyelitis, Rheumatoid arthritis, Sprain, Septic, Ulcer, Other Foot Diff Dx:Considerations: Include: Abrasion, Arthritis, Cellulitis, Contus ion, Dislocation, DJD, Fracture-metatarsal, Fracture-phalynx, Fracture-tarsal, Gout, Hematoma, Ingrown toenail, Laceration, Malunion, Neurovascular injury, Open fracture, Paronychia, Puncture, Rheumatoid, Sprain, Septic, Subungual hematoma, Ulcer, Other Toe Diff Dx:Considerations: Include: Abrasion, Cellulitis, Contusion, Dislocation, Felon, Fracture, Hematoma, Laceration, Neurovascular injury, Open fracture, Paronychia, Subungual hematoma, Other Departure Disposition: 01 HOME / SELF CARE / HOMELESS Impression: Primary Impression: General medical exam Condition: Stable Discharge Instructions: General Discharge Instructions Referrals: NO PRIMARY CARE PROVIDER (PCP) Signature Scribe Signature: No scribe Attestation: The note accurately reflects work and decisions made by me.Tonya Mckeon MD 06/07/25 01:14 TONYA MCKEON MD Jun 07, 2025 01:14
[2025-06-07 01:22] VITALS: BP 116/83; PULSE 88; RESP 15; O2SAT 99
== END 2025-06-07 01:40 | disposition home or self-care (01) ==
LOC: ER 00:44
DX: Z00.00 Encounter for general adult medical examination without abnormal findings (principal); M19.90 Unspecified osteoarthritis, unspecified site; E11.9 Type 2 diabetes mellitus without complications; G89.29 Other chronic pain; F12.90 Cannabis use, unspecified, uncomplicated; F15.90 Other stimulant use, unspecified, uncomplicated; F10.10 Alcohol abuse, uncomplicated; J45.909 Unspecified asthma, uncomplicated; Z56.0 Unemployment, unspecified; Z59.00 Homelessness unspecified; Z98.890 Other specified postprocedural states; Z60.2 Problems related to living alone; Y90.9 Presence of alcohol in blood, level not specified
CPT/HCPCS: 99283